=== PATIENT | male | born 1990 | race Caucasian/White ===

== ENCOUNTER 2019-01-21 08:06 | Emergency (ER) | payer OTHER ==
--- NOTE | 2019-01-21 08:26 | ED ---
Upper Extremity Pain - HPI Summary HPI Summary: Pt. is a 28 y.o male who presents to the ER for a right shoulder injury that occurred yesterday. 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 Pt. states he took a muscle relaxer and motrin last night. Pt. states that pain pain and ROM worsened today so he presents for evaluation. Sxs are mild in severity. Movement makes sxs worse. Rest makes sxs better. - History of Current Complaint Chief Complaint: EDShoulderClavicRima Stated Complaint: SHOULER INJURY AT WORK PER PT Time Seen by Provider: 01/21/19 08:20 Hx Obtained From: Patient - Allergies/Home Medications Allergies/Adverse Reactions: Allergies Allergy/AdvReac Type Severity Reaction Status Date / Time No Known Allergies Allergy Verified 01/21/19 08:11 Home Medications: Home Medications Albuterol Sulfate [Ventolin Hfa] 1 puff INH Q4H PRN 01/21/19 [History Confirmed 01/21/19] Albuterol Sulfate [Ventolin Hfa] 2 puff INH Q4HR PRN 01/21/19 [History Confirmed 01/21/19] Dextroamphetamine/Amphetamine [Adderall Xr 15 mg Capsule] 15 mg PO DAILY [History Confirmed 01/21/19] PMH/Surg Hx/FS Hx/Imm Hx Previously Healthy: Yes Endocrine/Hematology History: Denies: Hx Diabetes Cardiovascular History: Denies: Hx Congestive Heart Failure, Hx Hypertension History: Denies: Hx Renal Disease Sensory History: Reports: Hx Contacts or Glasses Opthamlomology History: Reports: Hx Contacts or Glasses - Surgical History Surgery Procedure, Year, and Place: penile surgery at the age of [age] years old Hx Anesthesia Reactions: No Infectious Disease History: No Infectious Disease History: Denies: Traveled Outside the [place] in Last 30 Days - Family History Known Family History: Positive: None, Non-Contributory - Social History Occupation: Employed Full-time Lives: With Family Alcohol Use: Rare Hx Substance Use: Yes Substance Use Type: Reports: Marijuana Hx Tobacco Use: No Smoking Status (MU): Never Smoked Tobacco Review of Systems Positive: Other - Right shoulder pain Skin: Negative Negative: Weakness, Paresthesia, Numbness All Other Systems Reviewed And Are Negative: Yes Physical Exam Triage Information Reviewed: Yes Vital Signs On Initial Exam: Initial Vitals Temp Pulse Resp BP Pulse Ox 97.0 F 55 16 141/88 99 01/21/19 08:07 01/21/19 08:07 01/21/19 08:07 01/21/19 08:07 01/21/19 08:07 Vital Signs Reviewed: Yes Diagnostics - Vital Signs Vital Signs Temp Pulse Resp BP Pulse Ox 01/21/19 08:07 97.0 F 55 16 141/88 99 - Laboratory Lab Statement: Any lab studies that have been ordered have been reviewed, and results considered in the medical decision making process. Course/Dx - Course Course Of Treatment: Patient presenting for right shoulder injury that occurred yesterday. X-ray negative for acute findings, reading per radiology. Suspect possible rotator cuff injury based on exam. Will have patient follow up with orthopedics for further evaluation. Advised ice intermittently. Avoid heavy lifting. Anti-inflammatories for pain. Patient understands and agrees with plan. - Diagnoses Differential Diagnosis/HQI/PQRI: Positive: Fracture (Closed), Strain, Sprain Provider Diagnoses: Shoulder injury Discharge - Sign-Out/Discharge Documenting (check all that apply): Patient Departure Patient Received Moderate/Deep Sedation with Procedure: No - Discharge Plan Condition: Good Disposition: HOME Patient Education Materials: Rotator Cuff Injury (ED), Shoulder Pain (ED) Referrals: Yuri Dunaway MD [Medical Doctor] - Additional Instructions: Call the orthopedic clinic today for a follow up appointment for further evaluation Ice intermittently Avoid heavy lifting Ibuprofen for pain as directed Return to ER if symptoms change or worsen - Billing Disposition and Condition Condition: GOOD Disposition: Home
[2019-01-21 09:12] VITALS: BP 133/74
== END 2019-01-21 09:11 | disposition home or self-care (01) ==
LOC: ED 08:06
DX: S49.91XA Unspecified injury of right shoulder and upper arm, initial encounter (principal); X58.XXXA Exposure to other specified factors, initial encounter; Y93.E6 Activity, residential relocation; Y92.013 Bedroom of single-family (private) house as the place of occurrence of the external cause; Y99.8 Other external cause status
CPT/HCPCS: 99282